=== PATIENT | female | born 1975 | race Caucasian/White ===

== ENCOUNTER 2019-03-25 22:00 | Observation (INO) ==
[2019-03-25 22:21] LABS: Bilirubin,Urine Negative (Negative); Blood,Urine Negative (Negative); Clarity,Urine Clear (Clear); Color,Urine Yellow (Yellow); Glucose,Urine (UA) Normal (Normal); Ketones,Urine Negative (Negative); Leukocyte Esterase,Urine Moderate (Negative); Nitrite,Urine Negative (Negative); Protein,Urine Negative (Neg-Trace); Specific Gravity,Urine 1.022 (1.010-1.025); Urobilinogen,Urine Normal (Normal)
[2019-03-25 22:24] LABS: Bacteria,Urine Few per hpf (None-Few); Hyaline Casts,Urine None Seen per lpf (None-Few); Squamous Epithelial Cell,Urine Many per lpf (None-Few)
[2019-03-25] MEDS ORDERED: Ondansetron 4 MG/2 ML VIAL IVP ONE (22:44)
[2019-03-25] MEDS ORDERED: Hyoscyamine SL 0.125 MG TAB.SUBL SL STA (22:44)
[2019-03-25] MEDS ORDERED: *HR* FentaNYL (PF) 100 MCG/2 ML VIAL IVP ONE (22:44)
[2019-03-25] MEDS ORDERED: 0.9 % Sodium Chloride 1,000 ML IVC ONE (22:47)
--- NOTE | 2019-03-25 22:56 | Emergency Department Note ---
Disposition Clinical Impression: Biliary colic, Mediastinal mass Disposition: Admitted As Inpatient Condition: Undetermined Referrals: NONE,PCP [Non-Partnered Physician] - Forms: ED Satisfaction Letter, Work/School Release Time of Disposition: 02:20 Abdominal Pain HPI - General Chief Complaint: ED Abdominal Pain Stated Complaint: poss gallbladder/vomiting Time Seen by Provider: 03/25/19 22:35 Source: patient Mode of arrival: ambulatory Limitations: no limitations Nursing Notes Reviewed: Yes Vital Signs Reviewed: Yes - History of Present Illness HPI Narrative: 44-year-old female with history of GERD arrives to the emergency department complaining of right upper quadrant left-sided chest, left shoulder, states this started earlier today. She has associated nausea. The patient states this is pretty similar to previous which she describes gallbladder tach as. The patient states that she has had episodes of this after eating a banana peppers and states that she thought was her gallbladder. She states she would take some simethicone it would go away. Patient states that she ate some [place] food and she thinks this is etiology. It started this morning after eating last night and for lunch today. The patient states that this is pretty similar to previous episodes in the past. She states that she had a episode where she thought it was her gallbladder. She states however this is a little more intense. Never been diagnosed with any issues of the gallbladder in the past. Patient also states that the pain radiates from her right upper quadrant into the left side of her chest and epigastrium and into the left shoulder. No associated shortness of breath, she does have associated nausea and one episode of vo miting. Pain Scale: 8 - Related Data Previous Rx's Medication Instructions Recorded Cephalexin [Keflex] 500 mg PO TID #30 capsule 06/20/17 Fluconazole [Diflucan] 150 mg PO DAILY #2 tab 06/20/17 Magic Mouthwash [Magic Mouthwash 10 ml PO QID #240 ml 06/20/17 BLM] Allergies Allergy/AdvReac Type Severity Reaction Status Date / Time Penicillins [PCN] Allergy Rash Verified 03/25/19 22:05 All systems ED: reviewed and negative except as stated. Constitutional: Denies: fever, chills, weakness ENT ED: Denies: dysphagia Cardiovascular: Reports: chest pain. Denies: dyspnea on exertion Respiratory: Denies: dyspnea Gastrointestinal: Reports: abdominal pain, nausea. Denies: vomiting, diarrhea, constipation Genitourinary: Denies: urgency, dysuria Musculoskeletal: Denies: back pain Integumentary: Denies: rash Neurological: Denies: headache Abdominal Pain PMH - Past Medical History Medical history: Reports: no medical history Female Surgical History: Reports: no surgical history - Social History Smoking status: Never smoker Alcohol use: Reports: occasionally Drug use: Reports: none Physical Exam - General Limitations: no limitations General appearance: alert, in no apparent distress - Head Head exam: atraumatic, normocephalic, normal inspection - Eye Eye exam: Present: normal appearance, PERRL, EOMI - ENT ENT exam: normal exam, normal oropharynx, mucous membranes moist - Neck Neck exam: Present: normal inspection, full ROM, trachea midline - Chest Chest inspection: Present: normal inspection, symmetric chest wall rise - Respiratory Respiratory exam: Present: normal lung sounds bilaterally - Cardiovascular Cardiovascular exam: Present: regular rate, normal rhythm, normal heart sounds - Abdominal Exam Abdominal exam: Present: soft, tenderness (RUQ). Absent: distention, guarding, rebound, Hughes's sign, Rovsing's sign, tenderness at McBurney's Point, hernia - Extremities Exam Extremities exam: Present: normal inspection, full ROM, normal capillary refill. Absent: tenderness, pedal edema - Neurological Exam Neurological exam: Present: alert, oriented X3 - Skin Skin exam: Present: warm, dry, intact, normal color Course Vital Signs Temperature 98.1 F 03/25/19 22:03 Pulse Rate 63 03/25/19 22:03 Respiratory Rate 20 03/25/19 22:03 Blood Pressure 139/90 03/25/19 22:03 O2 Sat by Pulse Oximetry 99 03/25/19 22:03 Temperature 98.1 F 03/25/19 22:03 Pulse Rate 58 03/26/19 02:12 Respiratory Rate 16 03/26/19 02:12 Blood Pressure 136/80 03/26/19 02:12 O2 Sat by Pulse Oximetry 100 03/26/19 02:12 Oxygen Delivery Oxygen Delivery Room Air Procedures - Ultrasound-Other Narrative: [id number] bedside ultrasound of the right upper quadrant revealed a g allbladder with noted gallstones within a period gallbladder wall noted to be 0.26 cm. No pericholecystic fluid noted. Common bile duct noted to be 0.21 cm in width. No sonographic Hughes sign noted. Abdominal Pain - MDM Narrative Medical decision making narrative: Patient's workup in the emergency department demonstrates cholelithiasis without or cholecystic fluid, no gallbladder wall thickening or dilation of common bile duct. Hepatic function within normal limits. No bilirubin elevation noted. Patient is still having some nausea and vomiting and I am concerned about the intractable nature of this and we will admit the patient to the hospital for intractable nausea and vomiting. I spoke with Dr. Mejía in general surgery who agreed that we can trending the patient's hepatic function to determine if the patient has any obstructive nature on this. Patient was given Zofran and Phenergan here in the emergency department. In addition the patient was found to have a large right upper lobe mass on x-ray so CT scan with IV contrast was performed. This demonstrated what appeared to be concern for malignancy and th yroid of origin. I spoke with on-call hospitalist who will accept the patient to the hospital. I feel as though I do not comfortable sending the patient home given the patient's intractable nausea and vomiting combined with her continued abdominal discomfort with cholelithiasis combined with this new right upper lobe mass noted. Patient agrees to plan of care. No further questions or concerns noted. - Lab Data Lab results reviewed: Yes I reviewed the patient's lab results. Result diagrams: 03/25/19 22:46 03/25/19 22:46 Lab Results 03/25/19 03/25/19 03/25/19 Range/Units 22:12 22:12 22:46 WBC 13.4 H (4.3-11.1) K/mcL RBC 4.27 (3.82-4.97) M/mcL Hgb 11.9 (11.5-15.4) g/dL Hct 36.7 (35.3-44.9) % MCV 85.9 (83.0-100.0) fL MCH 27.9 L (28.0-33.3) pg MCHC 32.4 (31.6-35.5) g/dL RDW 12.9 (11.5-14.5) % Plt Count 284 (140-400) K/mcL MPV 10.3 (9.4-12.4) fL Immature Gran % 0.3 (0-4) % Seg Neutrophils % 86.2 % Lymphocytes % 9.0 % Monocytes % 4.0 % Eosinophils % 0.4 % Basophils % 0.1 % Neutrophils # 11.5 H (1.6-8.9) K/mcL Lymphocytes # 1.2 (0.6-4.6) K/mcL Monocytes # 0.5 (0.0-1.3) K/mcL Eosinophils # 0.1 (0.0-0.6) K/mcL Basophils # 0.0 (0.0-0.2) K/mcL Sodium (136-145) mEq/L Potassium (3.5-5.1) mEq/L Chloride (98-107) mEq/L Carbon Dioxide (23-29) mEq/L BUN (6-20) mg/dL Creatinine (0.60-1.20) mg/dL Est GFR ( Amer) (> 60) Est GFR (Non-Af Amer) (> 60) BUN/Creatinine Ratio (6-26) Glucose (70-105) mg/dL Calculated Osmolality (280-300) Calcium (8.6-10.3) mg/dL Total Bilirubin (0.3-1.0) mg/dL Direct Bilirubin (0.0-0.2) mg/dL Indirect Bilirubin (0.0-1.2) mg/dL AST (13-39) Units/L ALT (7-52) Units/L Alkaline Phosphatase (34-104) Units/L Troponin I (< 0.04) ng/mL Serum Total Protein (6.4-8.9) g/dL Albumin (3.5-5.7) g/dL Globulin (2.4-3.5) g/dL Albumin/Globulin Ratio (1.1-2.2) Amylase (29-103) Units/L Lipase (11-82) Units/L Urine Color Yellow (Yellow) Urine Clarity Clear (Clear) Urine pH 7.0 (5.0-8.0) pH Units Ur Specific [place] 1.022 (1.010-1.025) Urine Protein Negative (Neg-Trace) mg/dL Urine Glucose (UA) Normal (Normal) mg/dL Urine Ketones Negative (Negative) mg/dL Urine Blood Negative (Negative) Urine Nitrite Negative (Negative) Urine Bilirubin Negative (Negative) Urine Urobilinogen Normal (Normal) mg/dL Ur Leukocyte Esterase Moderate H (Negative) Urine Microscopic RBC 5-15 H (0-3) per hpf Urine Microscopic WBC 5-15 H (0-3) per hpf Ur Squamous Epith Cells Many H (None-Few) per lpf Urine Bacteria Few (None-Few) per hpf Hyaline Casts None Seen (None-Few) per lpf Ur Culture Indicated? YES A (NO) Urine Test Negative (Negative) 03/25/19 Range/Units 22:46 WBC (4.3-11.1) K/mcL RBC (3.82-4.97) M/mcL Hgb (11.5-15.4) g/dL Hct (35.3-44.9) % MCV (83.0-100.0) fL MCH (28.0-33.3) pg MCHC (31.6-35.5) g/dL RDW (11.5-14.5) % Plt Count (140-400) K/mcL MPV (9.4-12.4) fL Immature Gran % (0-4) % Seg Neutrophils % % Lymphocytes % % Monocytes % % Eosinophils % % Basophils % % Neutrophils # (1.6-8.9) K/mcL Lymphocytes # (0.6-4.6) K/mcL Monocytes # (0.0-1.3) K/mcL Eosinophils # (0.0-0.6) K/mcL Basophils # (0.0-0.2) K/mcL Sodium 136 (136-145) mEq/L Potassium 3.6 (3.5-5.1) mEq/L Chloride 103 (98-107) mEq/L Carbon Dioxide 21 L (23-29) mEq/L BUN 11 (6-20) mg/dL Creatinine 0.64 (0.60-1.20) mg/dL Est GFR ( Amer) > 60 (> 60) Est GFR (Non-Af Amer) > 60 (> 60) BUN/Creatinine Ratio 17 (6-26) Glucose 147 H (70-105) mg/dL Calculated Osmolality 284 (280-300) Calcium 8.8 (8.6-10.3) mg/dL Total Bilirubin 0.4 (0.3-1.0) mg/dL Direct Bilirubin 0.1 (0.0-0.2) mg/dL Indirect Bilirubin 0.3 (0.0-1.2) mg/dL AST 13 (13-39) Units/L ALT 11 (7-52) Units/L Alkaline Phosphatase 91 (34-104) Units/L Troponin I < 0.03 (< 0.04) ng/mL Serum Total Protein 7.3 (6.4-8.9) g/dL Albumin 4.2 (3.5-5.7) g/dL Globulin 3.1 (2.4-3.5) g/dL Albumin/Globulin Ratio 1.4 (1.1-2.2) Amylase 37 (29-103) Units/L Lipase 14 (11-82) Units/L Urine Color (Yellow) Urine Clarity (Clear) Urine pH (5.0-8.0) pH Units Ur Specific [place] (1.010-1.025) Urine Protein (Neg-Trace) mg/dL Urine Glucose (UA) (Normal) mg/dL Urine Ketones (Negative) mg/dL Urine Blood (Negative) Urine Nitrite (Negative) Urine Bilirubin (Negative) Urine Urobilinogen (Normal) mg/dL Ur Leukocyte Esterase (Negative) Urine Microscopic RBC (0-3) per hpf Urine Microscopic WBC (0-3) per hpf Ur Squamous Epith Cells (None-Few) per lpf Urine Bacteria (None-Few) per hpf Hyaline Casts (None-Few) per lpf Ur Culture Indicated? (NO) Urine Test (Negative) - Radiology Data Radiology results reviewed: Yes I reviewed the patient's radiology results. Chest X-Ray 03/25/19 22:44 IMPRESSION: Large abnormal right convex opacity of the superior right mediastinum worrisome for mass or adenopathy. Dedicated CT of the chest with contrast is recommended. 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 Potentially malignancy of thyroid origin, other etiologies such as thymic origin not excluded. Mass may potentially be accessible via ultrasound-guided FNA. Indeterminate lung nodules as detailed. Depending on results of biopsy, however obtained, PET-CT may be indicated. Multiple gallstones within a distended gallbladder. 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 Potentially malignancy of thyroid origin, other etiologies such as thymic origin not excluded. Mass may potentially be accessible via ultrasound-guided FNA. Indeterminate lung nodules as detailed. Depending on results of biopsy, however obtained, PET-CT may be indicated. Multiple gallstones within a distended gallbladder. D/ / Remy Sterling MD / Remy Sterling MD Interpreting Provider: Remy Sterling MD - EKG Data EKG attestation: Yes I reviewed and interpreted this EKG. EKG results narrative: Heart rate 60 beats for minute. Normal sinus rhythm. No ST or ST depression noted. No acute changes noted
[2019-03-25 23:10] LABS: Basophils % 0.1 %; Eosinophils # 0.1 K/mcL (0.0-0.6); Eosinophils % 0.4 %; Hematocrit 36.7 % (35.3-44.9); Hemoglobin 11.9 g/dL (11.5-15.4); Immature Granulocytes % 0.3 % (0-4); Lymphocytes # 1.2 K/mcL (0.6-4.6); Mean Corpuscular HGB Conc 32.4 g/dL (31.6-35.5); Mean Corpuscular Hemoglobin 27.9 pg (28.0-33.3); Mean Corpuscular Volume 85.9 fL (83.0-100.0); Mean Platelet Volume 10.3 fL (9.4-12.4); Monocytes # 0.5 K/mcL (0.0-1.3); Neutrophils # 11.5 K/mcL (1.6-8.9); Platelet Count 284 K/mcL (140-400); Red Blood Count 4.27 M/mcL (3.82-4.97); Red Cell Distribution Width 12.9 % (11.5-14.5); Segmented Neutrophils % 86.2 %
[2019-03-25] MEDS ORDERED: Isovue-370 500 ML BOTTLE IVP ONE (23:27)
[2019-03-25 23:31] LABS: Alanine Aminotransferase 11 Units/L (7-52); Albumin 4.2 g/dL (3.5-5.7); Albumin/Globulin Ratio 1.4 (1.1-2.2); Alkaline Phosphatase 91 Units/L (34-104); Amylase 37 Units/L (29-103); Aspartate Amino Transferase 13 Units/L (13-39); BUN/Creatinine Ratio 17 (6-26); Bilirubin,Direct 0.1 mg/dL (0.0-0.2); Bilirubin,Indirect 0.3 mg/dL (0.0-1.2); Bilirubin,Total 0.4 mg/dL (0.3-1.0); Blood Urea Nitrogen 11 mg/dL (6-20); Calcium 8.8 mg/dL (8.6-10.3); Carbon Dioxide 21 mEq/L (23-29); Chloride 103 mEq/L (98-107); Globulin 3.1 g/dL (2.4-3.5); Glucose 147 mg/dL (70-105); Lipase 14 Units/L (11-82); Osmolality,Calculated 284 (280-300); Potassium 3.6 mEq/L (3.5-5.1); Sodium 136 mEq/L (136-145); Total Protein 7.3 g/dL (6.4-8.9); Troponin I < 0.03 ng/mL (< 0.04); eGFR For Non-African Americans > 60 (> 60)
--- NOTE | 2019-03-25 23:42 | Emergency Department Note ---
Disposition Clinical Impression: Biliary colic Disposition: Still a Patient Condition: Good Referrals: NONE,PCP [Primary Care Provider] - Forms: ED Satisfaction Letter, Work/School Release Time of Disposition: 23:42 General Adult HPI - General Chief complaint: ED Abdominal Pain Stated complaint: poss gallbladder/vomiting Time Seen by Provider: 03/25/19 22:35 Source: patient Mode of arrival: ambulatory Limitations: no limitations - History of Present Illness Pain Scale: 8 - Related Data Previous Rx's Medication Instructions Recorded Cephalexin [Keflex] 500 mg PO TID #30 capsule 06/20/17 Fluconazole [Diflucan] 150 mg PO DAILY #2 tab 06/20/17 Magic Mouthwash [Magic Mouthwash 10 ml PO QID #240 ml 06/20/17 BLM] Allergies Allergy/AdvReac Type Severity Reaction Status Date / Time Penicillins [PCN] Allergy Rash Verified 03/25/19 22:05 Constitutional: Denies: fever, chills, weakness ENT ED: Denies: dysphagia Cardiovascular: Reports: chest pain. Denies: dyspnea on exertion Respiratory: Denies: dyspnea Gastrointestinal: Reports: abdominal pain, nausea. Denies: vomiting, diarrhea, constipation Genitourinary: Denies: urgency, dysuria Musculoskeletal: Denies: back pain Integumentary: Denies: rash Neurological: Denies: headache Past Medical History - Past Medical History Medical history: Reports: no medical history - Social History Smoking Status: Never smoker Smokeless Tobacco Status: No Alcohol use: Reports: occasionally Drug use: Reports: none Physical Exam - General Limitations: no limitations General appearance: alert, in no apparent distress Course Vital Signs Temperature 98.1 F 03/25/19 22:03 Pulse Rate 63 03/25/19 22:03 Respiratory Rate 20 03/25/19 22:03 Blood Pressure 139/90 03/25/19 22:03 O2 Sat by Pulse Oximetry 99 03/25/19 22:03 Temperature 98.1 F 03/25/19 22:03 Pulse Rate 63 03/25/19 22:03 Respiratory Rate 20 03/25/19 22:03 Blood Pressure 139/90 03/25/19 22:03 O2 Sat by Pulse Oximetry 99 03/25/19 22:03 Oxygen Delivery Oxygen Delivery Room Air Medical Decision Making - Lab Data Result diagrams: 03/25/19 22:46 03/25/19 22:46 Lab Results 03/25/19 03/25/19 03/25/19 Range/Units 22:12 22:12 22:46 WBC 13.4 H (4.3-11.1) K/mcL RBC 4.27 (3.82-4.97) M/mcL Hgb 11.9 (11.5-15.4) g/dL Hct 36.7 (35.3-44.9) % MCV 85.9 (83.0-100.0) fL MCH 27.9 L (28.0-33.3) pg MCHC 32.4 (31.6-35.5) g/dL RDW 12.9 (11.5-14.5) % Plt Count 284 (140-400) K/mcL MPV 10.3 (9.4-12.4) fL Immature Gran % 0.3 (0-4) % Seg Neutrophils % 86.2 % Lymphocytes % 9.0 % Monocytes % 4.0 % Eosinophils % 0.4 % Basophils % 0.1 % Neutrophils # 11.5 H (1.6-8.9) K/mcL Lymphocytes # 1.2 (0.6-4.6) K/mcL Monocytes # 0.5 (0.0-1.3) K/mcL Eosinophils # 0.1 (0.0-0.6) K/mcL Basophils # 0.0 (0.0-0.2) K/mcL Sodium (136-145) mEq/L Potassium (3.5-5.1) mEq/L Chloride (98-107) mEq/L Carbon Dioxide (23-29) mEq/L BUN (6-20) mg/dL Creatinine (0.60-1.20) mg/dL Est GFR ( Amer) (> 60) Est GFR (Non-Af Amer) (> 60) BUN/Creatinine Ratio (6-26) Glucose (70-105) mg/dL Calculated Osmolality (280-300) Calcium (8.6-10.3) mg/dL Total Bilirubin (0.3-1.0) mg/dL Direct Bilirubin (0.0-0.2) mg/dL Indirect Bilirubin (0.0-1.2) mg/dL AST (13-39) Units/L ALT (7-52) Units/L Alkaline Phosphatase (34-104) Units/L Troponin I (< 0.04) ng/mL Serum Total Protein (6.4-8.9) g/dL Albumin (3.5-5.7) g/dL Globulin (2.4-3.5) g/dL Albumin/Globulin Ratio (1.1-2.2) Amylase (29-103) Units/L Lipase (11-82) Units/L Urine Color Yellow (Yellow) Urine Clarity Clear (Clear) Urine pH 7.0 (5.0-8.0) pH Units Ur Specific [place] 1.022 (1.010-1.025) Urine Protein Negative (Neg-Trace) mg/dL Urine Glucose (UA) Normal (Normal) mg/dL Urine Ketones Negative (Negative) mg/dL Urine Blood Negative (Negative) Urine Nitrite Negative (Negative) Urine Bilirubin Negative (Negative) Urine Urobilinogen Normal (Normal) mg/dL Ur Leukocyte Esterase Moderate H (Negative) Urine Microscopic RBC 5-15 H (0-3) per hpf Urine Microscopic WBC 5-15 H (0-3) per hpf Ur Squamous Epith Cells Many H (None-Few) per lpf Urine Bacteria Few (None-Few) per hpf Hyaline Casts None Seen (None-Few) per lpf Ur Culture Indicated? YES A (NO) Urine Test Negative (Negative) 03/25/19 Range/Units 22:46 WBC (4.3-11.1) K/mcL RBC (3.82-4.97) M/mcL Hgb (11.5-15.4) g/dL Hct (35.3-44.9) % MCV (83.0-100.0) fL MCH (28.0-33.3) pg MCHC (31.6-35.5) g/dL RDW (11.5-14.5) % Plt Count (140-400) K/mcL MPV (9.4-12.4) fL Immature Gran % (0-4) % Seg Neutrophils % % Lymphocytes % % Monocytes % % Eosinophils % % Basophils % % Neutrophils # (1.6-8.9) K/mcL Lymphocytes # (0.6-4.6) K/mcL Monocytes # (0.0-1.3) K/mcL Eosinophils # (0.0-0.6) K/mcL Basophils # (0.0-0.2) K/mcL Sodium 136 (136-145) mEq/L Potassium 3.6 (3.5-5.1) mEq/L Chloride 103 (98-107) mEq/L Carbon Dioxide 21 L (23-29) mEq/L BUN 11 (6-20) mg/dL Creatinine 0.64 (0.60-1.20) mg/dL Est GFR ( Amer) > 60 (> 60) Est GFR (Non-Af Amer) > 60 (> 60) BUN/Creatinine Ratio 17 (6-26) Glucose 147 H (70-105) mg/dL Calculated Osmolality 284 (280-300) Calcium 8.8 (8.6-10.3) mg/dL Total Bilirubin 0.4 (0.3-1.0) mg/dL Direct Bilirubin 0.1 (0.0-0.2) mg/dL Indirect Bilirubin 0.3 (0.0-1.2) mg/dL AST 13 (13-39) Units/L ALT 11 (7-52) Units/L Alkaline Phosphatase 91 (34-104) Units/L Troponin I < 0.03 (< 0.04) ng/mL Serum Total Protein 7.3 (6.4-8.9) g/dL Albumin 4.2 (3.5-5.7) g/dL Globulin 3.1 (2.4-3.5) g/dL Albumin/Globulin Ratio 1.4 (1.1-2.2) Amylase 37 (29-103) Units/L Lipase 14 (11-82) Units/L Urine Color (Yellow) Urine Clarity (Clear) Urine pH (5.0-8.0) pH Units Ur Specific [place] (1.010-1.025) Urine Protein (Neg-Trace) mg/dL Urine Glucose (UA) (Normal) mg/dL Urine Ketones (Negative) mg/dL Urine Blood (Negative) Urine Nitrite (Negative) Urine Bilirubin (Negative) Urine Urobilinogen (Normal) mg/dL Ur Leukocyte Esterase (Negative) Urine Microscopic RBC (0-3) per hpf Urine Microscopic WBC (0-3) per hpf Ur Squamous Epith Cells (None-Few) per lpf Urine Bacteria (None-Few) per hpf Hyaline Casts (None-Few) per lpf Ur Culture Indicated? (NO) Urine Test (Negative) Attestation Statement - Attestation Attestation: I examined this patient and my medical decision-making was reviewed with the Resident Physician. I agree with the documented findings, disposition and treatment plan as described except to the extent set forth below. 44 year old female presents to the ED with complaints of RUQ pain and is likley experiencing biliary colic and states that she has foudn that certain foods make it wores and she ate veggie lo mein last night and tonight and it apears that it has exceratbed her pain. BEdside US does not shows acute divina but it does show gallstones and she would like benefit from a HIDA Scan. Although on CXR it did show a right medistainal hilar mass that they are otherwise requiring a CT chest with IV contrast for evaluation. Flaco states the medication have helped with her pain. Labs are otherwise unremarkable
[2019-03-26] MEDS ORDERED: Isovue-370 500 ML BOTTLE IVP ONE (00:13)
[2019-03-26] MEDS ORDERED: *HR* FentaNYL (PF) 100 MCG/2 ML VIAL IVP ONE (00:14)
[2019-03-26] MEDS ORDERED: Ondansetron 4 MG/2 ML VIAL IVP ONE (00:16)
[2019-03-26] MEDS ORDERED: *HR* Promethazine 25 MG/ML VIAL IVP ONE (01:58)
[2019-03-26] MEDS ORDERED: *HR* HYDROmorphone (PF) 1 MG/ML SYRINGE IVP ONE (01:58)
[2019-03-26 02:49] LABS: Thyroid Stimulating Hormone 0.355 mcIU/mL (0.340-5.600)
[2019-03-26] MEDS ORDERED: Naloxone 0.4 MG/ML INJ IVP PRN (06:23)
[2019-03-26] MEDS ORDERED: Ondansetron 4 MG/2 ML VIAL IVP PRN (06:23)
[2019-03-26] MEDS ORDERED: OXYCODONE Oral CONC 10 MG/0.5 ML ORAL.SYG SL PRN (06:28)
[2019-03-26] MEDS ORDERED: 0.9 % Sodium Chloride 1,000 ML IVC SCH (06:30)
--- NOTE | 2019-03-26 06:43 | Internal Med History&Physical ---
Date of Encounter: 03/26/19 Time of Encounter: 05:30 Internal Medicine - H&P: HPI Chief complaint: Abdominal Pain Admitted From: Home Plans for Post Hospital Care: Home History of present illness: Ms. Kam is a 44 year old female with past medical history significant for GERD who presents for complaints of RUQ abdominal pain starting yesterday radiating across her chest into her shoulders and back associated with nausea and vomiting. Pain is described as aching and waxes and wanes in intensity and rated at 10/10 when at its worst. Pain improved and nearly resolved after receiving pain and nausea medications in ER. Currently rates her pain at 1/10. Currently denies any headache, chest pain, shortness of breath, nausea, chills, bowel or bladder changes. ER reported EKG as sinus rhythm with no acute changes noted. ER obtained chest xray which showed large abnormal right convex opacity of the superior right mediastinum worrisome for mass or adenopathy with dedicated CT of the chest recommended. ER then obtained chest CT which showed mediastinal mass contiguous with lower right pole right lobe thyroid extending into right paratracheal region, potentially malignancy of thyroid origin and other etiologies such as thymic origin not excluded with indeterminate lung nodules. ER also performed a CT of the abdomen and pelvis which showed multiple gallstones within a distended gallbladder. ER also performed a bedside ultrasound of the right upper quadrant of abdomen which showed a gallbladder with noted gallstones. Patient reports having similar flare ups in the past with certain foods that she suspected was secondary to her gallbladder though she never pursued an actual work up. Reports this episode seemed more intense and is the first time she has also experienced nausea and vomiting with the pain. ER called loom control chain builder surgery Dr Mejía who advised to continue trending lab work and will be happy to see in consult if needed. Also reports recently following with PCP over past couple months for abnormal thyroid labs but is unsure what they were. Past Med Surg Social Fam HX - Past Medical History Medical history: GERD Psychiatric history: anxiety, depression - Past Surgical History Surgical History: no surgical history - Social History Smoking Status: Never smoker Smokeless Tobacco Status: No Alcohol use: occasionally Drug use: none Internal Medicine - H&P: Meds Allergy/AdvReac Type Severity Reaction Status Date / Time Penicillins [PCN] Allergy Rash Verified 03/25/19 22:05 All Systems PM: A 10-system review of systems was performed and is negative for pertinent findings except as documented above in the HPI. - Constitutional Vitals: Temp Pulse Resp BP Pulse Ox 98.5 F 76 14 116/72 99 03/26/19 04:13 03/26/19 04:13 03/26/19 04:13 03/26/19 04:13 03/26/19 04:13 Exam: General: Alert and oriented. Skin:Normal color, no rash, no lesions. HEENT:Pupils equal, round and reactive. Cardiovascular:Normal S1 & S2, no rubs, murmurs or gallops. No JVD. Pulse regular. Lungs:Normal breath sounds, no wheezes or crackles. Abdomen:Soft, no rigidity. Tenderness on palpation to RUQ. Normoactive bowel sounds. No rebound tenderness or murphys sign. Extremities:No deformity, no edema or tenderness, no joint swelling or clubbing. Neurological:Normal cognition and motor skills. Pulses:Carotid and radial pulses normal +2. Rest of the physical exam is non contributory. Internal Med - H&P Results - Labs CBC & Chem 7: 03/25/19 22:46 03/25/19 22:46 Labs: Short CBC 03/25/19 Range/Units 22:46 WBC 13.4 H (4.3-11.1) K/mcL Hgb 11.9 (11.5-15.4) g/dL Hct 36.7 (35.3-44.9) % Plt Count 284 (140-400) K/mcL Neutrophils # 11.5 H (1.6-8.9) K/mcL BMP 03/25/19 22:46 Sodium 136 Potassium 3.6 Chloride 103 Carbon Dioxide 21 L BUN 11 Creatinine 0.64 Glucose 147 H Calcium 8.8 Cardiac Enzymes 03/25/19 Range/Units 22:46 Troponin I < 0.03 (< 0.04) ng/mL Liver Function 03/25/19 Range/Units 22:46 Total Bilirubin 0.4 (0.3-1.0) mg/dL Direct Bilirubin 0.1 (0.0-0.2) mg/dL AST 13 (13-39) Units/L ALT 11 (7-52) Units/L Alkaline Phosphatase 91 (34-104) Units/L Albumin 4.2 (3.5-5.7) g/dL Urine 03/25/19 Range/Units 22:12 Urine Color Yellow (Yellow) Urine Clarity Clear (Clear) Urine pH 7.0 (5.0-8.0) pH Units Ur Specific [place] 1.022 (1.010-1.025) Urine Protein Negative (Neg-Trace) mg/dL Urine Glucose (UA) Normal (Normal) mg/dL - Impressions ITS Impressions Chest X-Ray 03/25/19 22:44 IMPRESSION: Large abnormal right convex opacity of the superior right mediastinum worrisome for mass or adenopathy. Dedicated CT of the chest with contrast is recommended. 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 Potentially malignancy of thyroid origin, other etiologies such as thymic origin not excluded. Mass may potentially be accessible via ultrasound-guided FNA. Indeterminate lung nodules as detailed. Depending on results of biopsy, however obtained, PET-CT may be indicated. Multiple gallstones within a distended gallbladder. 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 Potentially malignancy of thyroid origin, other etiologies such as thymic origin not excluded. Mass may potentially be accessible via ultrasound-guided FNA. Indeterminate lung nodules as detailed. Depending on results of biopsy, however obtained, PET-CT may be indicated. Multiple gallstones within a distended gallbladder. D/ / Remy Sterling MD / Remy Sterling MD Interpreting Provider: Remy Sterling MD - Assessment and Plan (1) Gallstones Current Visit: Yes Status: Acute Assessment and plan: CT of abdomen pelvis shows multiple gallstones within a distended gallbladder. ER point of care ultrasound of right upper quadrant of abdomen shows gallbladder with noted gallstones. Continue trending labs. call center recruiter surgery Dr Mejía called by ER, recommends continuing to trend labs and will see in consult if needed. Repeat labs ordered. MIVF ordered. NPO. Pain control with PRN pain medications. (2) Abdominal pain Current Visit: Yes Status: Acute Assessment and plan: Likely secondary to gallstones. Plan as state above. Qualifiers: Abdominal location: right upper quadrant Qualified Code(s): R10.11 - Right upper quadrant pain (3) Nausea and vomiting Current Visit: Yes Status: Acute Assessment and plan: Currently resolved following nausea medications in ER. Likely secondary to gallstones. Nausea control with PRN nausea medications. Qualifiers: Vomiting type: unspecified Vomiting Intractability: unspecified Qualified Code(s): R11.2 - Nausea with vomiting, unspecified (4) Mediastinal mass Current Visit: Yes Status: Acute Assessment and plan: Chest CT shows mediastinal mass contiguous with lower right pole right lobe thyroid extending into right paratracheal region, potentially malignancy of thyroid origin and other etiologies such as thymic origin not excluded. Reports recent abnormal thyroid studies with PCP over last couple months. Oncology consult ordered, will need called in a.m. (5) Lung nodules Current Visit: Yes Status: Acute Assessment and plan: Chest CT shows indeterminate lung nodules that may warrant further evaluation. Oncology consult ordered, will need called in a.m. (6) Elevated white blood cell count Current Visit: Yes Status: Acute Assessment and plan: Slightly elevated at 13.4 Repeat labs ordered. Qualifiers: Leukocytosis type: unspecified Qualified Code(s): D72.829 - Elevated white blood cell count, unspecified (7) Abnormal urinalysis Current Visit: Yes Status: Acute Assessment and plan: UA shows moderate leukocyte esterase but possibly contaminated specimen. Denies any urinary symptoms. Urine culture pending. - Time Spent With Patient Total time spent is greater than 50% in coordination of care (as documented) at patient's floor/unit and/or counseling patient:
[2019-03-26 09:05] LABS: Basophils % 0.1 %; Eosinophils % 0.3 %; Hematocrit 36.4 % (35.3-44.9); Hemoglobin 11.4 g/dL (11.5-15.4); Immature Granulocytes % 0.3 % (0-4); Lymphocytes # 1.7 K/mcL (0.6-4.6); Lymphocytes % 12.4 %; Mean Corpuscular HGB Conc 31.3 g/dL (31.6-35.5); Mean Corpuscular Hemoglobin 27.2 pg (28.0-33.3); Mean Corpuscular Volume 86.9 fL (83.0-100.0); Mean Platelet Volume 10.1 fL (9.4-12.4); Monocytes # 0.8 K/mcL (0.0-1.3); Monocytes % 5.8 %; Neutrophils # 10.8 K/mcL (1.6-8.9); Platelet Count 273 K/mcL (140-400); Red Blood Count 4.19 M/mcL (3.82-4.97); Segmented Neutrophils % 81.1 %
[2019-03-26 09:24] LABS: Alanine Aminotransferase 11 Units/L (7-52); Albumin 4.1 g/dL (3.5-5.7); Albumin/Globulin Ratio 1.4 (1.1-2.2); Alkaline Phosphatase 92 Units/L (34-104); Aspartate Amino Transferase 13 Units/L (13-39); BUN/Creatinine Ratio 14 (6-26); Bilirubin,Total 0.5 mg/dL (0.3-1.0); Blood Urea Nitrogen 8 mg/dL (6-20); Calcium 8.8 mg/dL (8.6-10.3); Carbon Dioxide 26 mEq/L (23-29); Chloride 105 mEq/L (98-107); Glucose 112 mg/dL (70-105); Osmolality,Calculated 283 (280-300); Potassium 3.9 mEq/L (3.5-5.1); Sodium 137 mEq/L (136-145); Total Protein 7.1 g/dL (6.4-8.9); eGFR For Non-African Americans > 60 (> 60)
--- NOTE | 2019-03-26 09:29 | Oncology Inp Consult Note ---
Date of Encounter: 03/26/19 Time of Encounter: 09:00 Assessment and Plan (1) Mediastinal mass Status: Acute Assessment and plan: Anterior mediastinal mass, with cystic/necrotic appearance with calcifications, patient asymptomatic possible differential reviewed including cystic thymus lesions, malignancy, lymphoma benign/malignant thyroid conditions. TSH was low which has normalized. Since she is asymptomatic completely additional workup can be pursued as an outpatient including PET imaging, biopsy/thoracic surgery referral. Leukocytosis neutrophilic with prior normal blood counts likely related to her GI symptoms which has resolved. She is however on antiemetics as needed. Gallstones, surgery has been consulted and she is not acutely symptomatic currently. Labs being followed. Plan of care as above discussed with patient risk benefits of biopsy procedure reviewed with her. - Data of Consult Requesting Physician: Mino Knight MD Primary Care Provider: Sophia Estes CNP - Consult Narrative Reason for consult: mediastinal mass History of present illness: 44-year-old of female with no significant past medical history, nonsmoker, with abdominal pain, right upper quadrant for one day duration, nauseated feeling, presented to the ER. She relates her symptoms to the food she consumed, it resulted in gaseous feeling subsequently pain in the right upper quadrant. A CT scan of the chest abdomen and pelvis with IV contrast was performed which showed multiple gallstones in the distended gallbladder. Indeterminate lung nodules, liver cyst. A mediastinal mass contiguous with the lower pole of right thyroid lobe extending into the right paratracheal region was noted and oncology consulted for the same. This morning her abdominal pain has resolved, nausea is under control with antiemetics. She denies diarrhea. She denies any dysphagia or dyspnea she has some fatigue for the last year or so, she denies any worsening muscle weakness towards the evenings, no change in voice denies wt loss Past Med Surg Social Fam HX - Past Medical History Medical history: GERD Psychiatric history: anxiety, depression - Past Surgical History Surgical History: no surgical history - Social History Smoking Status: Never smoker Smokeless Tobacco Status: No Alcohol use: occasionally Drug use: none Medications and Allergies Allergy/AdvReac Type Severity Reaction Status Date / Time Penicillins [PCN] Allergy Rash Verified 03/25/19 22:05 Constitutional: Present: fatigue Additional comments: n wt loss, no fever Additional comments: no cp Additional comments: denies SOB/cough Additional comments: denies dysphagia Additional comments: denies jt aches Additional comments: gen wkness Oncology - Exam - Constitutional General appearance: no acute distress - Head Head exam: Present: atraumatic, normal inspection - Eye Eye exam: Present: EOMI, sclera anicteric - ENT ENT exam: Present: mucous membranes moist - Neck Additional comments: no palpable findings - Respiratory Respiratory exam: Present: CTAB - Cardiovascular Cardiovascular exam: Present: +S1, +S2 - GI/Abdominal GI/Abdominal exam: Present: normal bowel sounds, soft - Extremities Exam Extremities exam: Present: normal inspection - Neurological Exam Neurological exam: Present: alert, CN II-XII intact, oriented X3, no focal deficits - Psychiatric Psychiatric exam: Present: normal affect Consult Discharge Plan - Plan Referrals: Sophia Estes, PROMOTIONS DIRECTOR [Primary Care Provider] - Inpatient Charges Provider: Dr. Jonah Sandoval Consult - Inpatient: [id number]
--- NOTE | 2019-03-26 10:45 | Event Note ---
Date of Encounter: 03/26/19 Time of Encounter: 10:44 Surgery was approached by attending hospitalist (Dr. Knight) states patient is feeling better than when she came in. There is no evidence for acute cholecystitis. His plan is to trial her on a diet and if she is tolerable discharged to home with a follow-up in the office with general surgery to discuss cholelithiasis. Primary team will notify surgery if a consult visit is necessary.
[2019-03-26 11:32] VITALS: BP 136/88
--- NOTE | 2019-03-26 12:57 | Discharge Summary ---
- NOTES TO OUTPATIENT PROVIDER Notes to Outpatient Provider: Patient needs but CT scan per oncology. We will arrange for outpatient follow-up. She also needs follow up with surgery for her cholelithiasis. Orders not resulted at time of discharge: Pending orders 03/25/19 22:12 Culture,Urine [RM] Stat Date of Encounter: 03/26/19 Time of Encounter: 12:52 - Discharge Diagnosis (1) Abdominal pain Priority: Primary Status: Acute Qualifiers: Abdominal location: right upper quadrant Qualified Code(s): R10.11 - Right upper quadrant pain (2) Gallstones Priority: Secondary Status: Acute (3) Lung nodules Priority: Secondary Status: Acute (4) Mediastinal mass Priority: Secondary Status: Acute (5) Abnormal urinalysis Priority: Secondary Status: Acute (6) Elevated white blood cell count Priority: Secondary Status: Acute Qualifiers: Leukocytosis type: unspecified Qualified Code(s): D72.829 - Elevated white blood cell count, unspecified (7) Nausea and vomiting Priority: Secondary Status: Resolved Qualifiers: Vomiting type: unspecified Vomiting Intractability: unspecified Qualified Code(s): R11.2 - Nausea with vomiting, unspecified Hospital course: Ms. Kam is a 44 year old female patient with a history of gastroesophageal reflux disease who was hospitalized with acute right upper quadrant abdominal pain along with nausea and vomiting. CT scan done in the year of her abdomen and pelvis showed multiple gallstones within a distended gallbladder. Patient did not have any lab findings suggestive of cholecystitis. Surgery was consulted in the ER but they do not recommend any surgical intervention at this time. Patient's symptoms have now significantly improved. She is tolerating oral diet. She skin is stable for discharge and will follow up with surgery for further management as outpatient as she does need elective cholecystectomy. Patient was also found to have a mediastinal mass originating from the thyroid along with some lung nodules. This will need further workup and patient was evaluated by oncology who recommended outpatient PET/CT. We will make arrangements for outpatient follow up with oncology for this. Discharge discussed with: patient - Time Spent with Patient Total time spent providing and/or coordinating discharge services: Time spent: Less than 30 minutes (25 min) - Discharge Medications Prescriptions: New Ondansetron HCl [Zofran] 4 mg PO Q8HR PRN #14 tab PRN Reason: Nausea Home Medications: Ondansetron HCl [Zofran] 4 mg PO Q8HR PRN #14 tab 03/26/19 [Rx] Allergies/Adverse Reactions: Allergy/AdvReac Type Severity Reaction Status Date / Time Penicillins [PCN] Allergy Rash Verified 03/25/19 22:05 Date of admission: 03/26/19 02:37 Primary care physician: Sophia Estes CNP Consults: 03/26/19 06:26 Consult to Oncology [CONS] Routine Consulting Provider: On[facility] Reason for Consult: Incidental findings of mediastinal mass contiguous with lower pole right lobe thyroid extending into right paratracheal region and inderterminate lung nodules found on CT of chest. Call Completed: No Discharging clinician: Mino Knight Anticipated date of discharge: 03/26/19 - Constitutional Vitals: Temp Pulse Resp BP Pulse Ox 98.7 F 59 16 136/88 99 03/26/19 11:27 03/26/19 11:27 03/26/19 11:27 03/26/19 11:27 03/26/19 11:27 General appearance: Present: cooperative, morbidly obese, pleasant, no acute distress Exam: General: Patient is alert, no acute distress, oriented x 3 Respiratory: Good respiratory effort. Normal breath sounds. No wheezing or crackles. Cardiovascular: Regular rate and rhythm. s1 and s2 normal No clicks, rubs, gallops, or murmurs. No pedal edema Abdomen: Abdomen is soft, right upper quadrant tenderness. Bowel sounds are present Musculoskeletal: Spontaneously moving all extremities Skin: warm, dry, intact. Neuro: Alert oriented x 3 normal cranial nerves, no focal deficits - Patient Status Disposition: Home, Self-Care Condition: Good Functional capacity at discharge: independent ambulation Overall status at discharge: patient is progressing back to baseline - Discharge Instructions Follow Up With: Sophia Estes CNP [Primary Care Provider] - (In 1 week) Howie Antonio DO [Partnered Physician] - (In 1 week for follow-up on cholelithiasis) Therese Sandoval MD [Partnered Physician] - (Within 1 week for follow-up regarding mediastinal mass requiring PET/CT) - Diet and Activity Activity: increase activity as tolerated Diet: low fat, low cholesterol, low salt diet
--- NOTE | 2019-03-28 08:43 | Electrocardiograph Report ---
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
== END 2019-03-26 14:33 | disposition home or self-care (01) ==
LOC: EMEROOARM 22:00 → 3ANU 22:00 → SUATTDRO 03-26 02:37 → 3ANU 03-26 03:38
PROVIDERS: ADMIT Family Medicine; ATTEND Internal Medicine

== ENCOUNTER 2019-06-02 07:18 | Inpatient (IN) ==
[2019-06-02] MEDS ORDERED: Acetaminophen IV 1,000 MG/100 ML INFUS..BTL IVPB ONE (08:11)
[2019-06-02] MEDS ORDERED: Famotidine 20 MG/2 ML VIAL IVP ONE (08:11)
[2019-06-02] MEDS ORDERED: CeFAZolin Syr 2,000MG/20 ML 2,000 MG/20 ML SYRINGE IVPB ONE (08:11)
[2019-06-02] MEDS ORDERED: Gabapentin 300 MG CAPSULE PO ONE (08:12)
[2019-06-02] MEDS ORDERED: Ringers Solution, Lactated 1,000 ML IVC SCH ×2 (08:15)
--- NOTE | 2019-06-02 08:17 | History & Physical Report ---
Date of Encounter: 06/02/19 Time of Encounter: 08:16 24 Hour HP Update - Instructions Instructions: If the History and Physical is less than 30 days old and was completed prior to A.M. admission and or procedure and has NOT been updated on calendar day of procedure please complete this update prior to performing procedure. - Update Patient reports changes in Medical Condition: Yes Changes in examination, assessment, or condition: Yes Changes in Medication: No Preop tests/diagnostics Reviewed: Yes Pre-Op MRSA Screen: Negative Surgery Remains Indicated: Yes Consent for Planned Operative Procedure(s) Verified: Yes Additions to current History and Physical: patient stung by a wasp 2nd digit left hand - Pre-Operative Checklist Preoperative Checklist Indicated: Yes Prophylactic Antibiotic Ordered: Yes Home Medications Include Beta Dev: No Beta Dev Taken Today (Day of Surgery): No Beta Dev Taken Yesterday (Day Prior to Surgery): No Is VTE Prophylaxis Indicated?: Yes
[2019-06-02] MEDS ORDERED: Dexamethasone 4 MG/ML VIAL ONE (08:20)
[2019-06-02] MEDS ORDERED: *HR* FentaNYL (PF) 100 MCG/2 ML VIAL ONE ×4 (08:20→11:25)
[2019-06-02] MEDS ORDERED: Ondansetron 4 MG/2 ML VIAL ONE (08:20)
[2019-06-02] MEDS ORDERED: *HR* Succinylcholine 200 MG/10 ML VIAL IVP ONE (08:20)
[2019-06-02] MEDS ORDERED: *HR* Rocuronium Bromide 50 MG/5 ML VIAL ONE (08:20)
[2019-06-02] MEDS ORDERED: Lidocaine -MPF 2% 2 ML VIAL ONE (08:20)
[2019-06-02] MEDS ORDERED: Lidocaine -MPF 4% 5 ML AMPUL ONE (08:20)
[2019-06-02] MEDS ORDERED: Lidocaine HCL 4 ML Topical Solution (Laryng-O-Jet Kit Sterile Pak) TP ONE ×2 (08:21→08:29)
[2019-06-02] MEDS ORDERED: *HR* Propofol 200 MG/20 ML VIAL IVP ONE ×2 (08:21→11:41)
[2019-06-02] MEDS ORDERED: *HR* Midazolam HCl 2 MG/2 ML VIAL ONE (08:21)
[2019-06-02] MEDS ORDERED: *HR* PHENYLEPHRINE 1,000 MCG/10 ML SYRINGE IVP ONE (08:27)
--- NOTE | 2019-06-02 08:32 | Anesthesia Evaluation PreOp ---
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 History: Denies Any Significant HX Other Medical History: GERD, Other (Obese) Anesthesia History: No Prior Anesthetic Complications : No Test: Negative Alcohol Use: occasionally Drug use: none Medications and Allergies Omeprazole [PriLOSEC] 20 mg PO DAILY #30 cap 03/26/19 [Rx] Ondansetron HCl [Zofran] 4 mg PO Q8HR PRN #14 tab 03/26/19 [Rx] Cetirizine HCl [Zyrtec] 10 mg PO DAILY 04/05/19 [History] Cyanocobalamin (Vitamin B-12) [Vitamin B12] 500 mcg PO DAILY 04/05/19 [History] Multivit-Min/Iron/Vitamin K [Adult Multivitamin-Iron Tablet] 1 each PO DAILY 04/05/19 [History] Sertraline [Zoloft] 100 mg PO DAILY 04/05/19 [History] Allergy/AdvReac Type Severity Reaction Status Date / Time Penicillins [PCN] Allergy Rash Verified 04/05/19 11:08 - Meds/Allergy Pre-op Review Medications Reviewed: Yes Allergies Reviewed: Yes Beta Blockers on Current Med List: No Anesthesia Results - Labs Laboratory Tests 05/25/19 05/25/19 05/25/19 10:47 10:47 10:47 Hgb 11.5 Hct 36.4 Plt Count 292 Sodium 137 Potassium 4.3 BUN 10 Creatinine 0.64 Serum , Qual Negative Anesthesia Exam O2 Sat Height 1.7 m Height 1.7 m Weight 116.12 kg Weight 116.12 kg O2 Sat by Pulse Oximetry 98 O2 Sat by Pulse Oximetry 98 Vital Signs Temp Pulse Resp BP Pulse Ox 98.2 F 78 18 140/84 98 06/02/19 08:07 06/02/19 08:07 06/02/19 08:07 06/02/19 08:07 06/02/19 08:07 Height: 5'7 Weight: 256 lbs NPO (# of Hours): MN Pain Scale: 0 - HEENT Pupil (Motor): Pupils equal, EOMI Mallampati: II Teeth: Normal Oral Opening: Greater than 3 - MAKE UP OPERATOR HELPER LOC: Oriented MAKE UP OPERATOR HELPER Motor: Normal RUE, Normal LUE, Normal RLE, Normal LLE, Normal Face MAKE UP OPERATOR HELPER Sensory: Normal: RUE, LUE, RLE, LLE, Face - Cardiac Rhythm: Regular Murmur: None JVD: No Carotid Bruit: No - Pulmonary Breath Sounds: bilateral Clear Respiratory Effort: Symmetrical Anesthesia Assess/Plan ASA Score: 2 Level of consciousness: Cooperative, Oriented Anesthetic Plan: General Autologous Blood: No Monitoring Plan: Standard Monitors Recovery Plan: PACU (Discussed GA, agrees to proceed)
[2019-06-02] MEDS ORDERED: Ondansetron 4 MG/2 ML VIAL IVP ONE (08:34)
[2019-06-02] MEDS ORDERED: Ketorolac 30 MG/ML VIAL ONE (08:34)
[2019-06-02] MEDS ORDERED: *HR* Promethazine 25 MG/ML VIAL IVP PRN (08:34)
[2019-06-02] MEDS ORDERED: Dexamethasone 4 MG/ML VIAL IVP ONE (08:34)
[2019-06-02] MEDS ORDERED: Lidocaine Jelly 6ml 1 APPL/6 ML JEL.PF.APP ONE (09:14)
[2019-06-02] MEDS ORDERED: Clindamycin 900 MG/50 ML 900 MG/50 ML IV.SOLN IVPB ONE ×2 (09:37→10:11)
[2019-06-02] MEDS ORDERED: Calcium Gluconate 1,000 MG/10 ML VIAL ONE (09:59)
--- NOTE | 2019-06-02 11:54 | Operative Note ---
Date of procedure: 06/02/19 Pre-op diagnosis: substernal goiter Post-op diagnosis: same Procedure: bronchoscopy transternal thyroidectomy partial thymectomy Anesthesia: GETA Surgeon: Velasquez Solares Was there an entry level administrative assistant present: No Estimated blood loss (cc): 250 Specimen: thymus, goiter Condition: stable Disposition: PACU Procedure in Detail: Patient was brought to the operating room and placed on the operating table in the supine position. After undergoing general anesthesia with sequential compressive devices on bilateral lower extremities operative antibiotics bronchoscopy was used to help place the double-lumen endotracheal tube in its correct anatomic position for single lung ventilation patient was prepped and draped in the usual sterile fashion incision made in the suprasternal notch to the xiphoid process with a #10 scalpel laid skin down of the subcutaneous tissue with the Bovie used to control hemostasis and to continue the dissection down to the sternum is divided longitudinally using the sternal saw and periosteal bleeding controlled with the Bovie cautery portion of the thymus gland was resected versus small injury to the left brachiocephalic vein which was controlled with a 4-0 Prolene suture. Vessel loops were placed around the left brachiocephalic vein as well as the innominate artery. With single lung ventilation we could appreciate the mass extending laterally down the right mediastinum into the azygos vein. With further dissection and gentle pressure the substernal goiter was brought up out of the chest above the innominate artery. The phrenic nerve was identified the entire time care taken to preserve its course. Once the mass was out of the mediastinum and into the neck 3 were able to identify the right recurrent laryngeal nerve which had been severely displaced given the size and chronicity of the substernal goiter. We were able to trace it in the chest up to the thyroid cartilage and preserve its course. Because the mass/goiter all involved the lower pole of the right thyroid we did not pursue any left thyroidectomy but only removal of the right. Hemostasis was excellent there were some gentle oozing near the trachea and this was controlled with fibrillar. 24 Caio drains were placed into the right and left pleural spaces. Sternal wires were placed. The bed of the sternal wires did not demonstrate any bleeding. The sternal wires were tightened and then the skin was closed in layers of #1 Vicryl, 0 Vicryl, and 4-0 Monocryl subcuticular stitch with dressings consisting of Steri-Strips and gauze area patient was extubated in the operating room taken to the recovery room breathing spontaneously hemodynamically stable.
[2019-06-02] MEDS: *HR* HYDROmorphone (PF) 1 MG/ML SYRINGE IVP PRN ×2 (12:11→12:16)
[2019-06-02] MEDS ORDERED: *HR* HYDROcodone/Acet 5/325 mg TABLET PO PRN (12:48)
[2019-06-02] MEDS ORDERED: Ondansetron 4 MG/2 ML VIAL IVP PRN (12:48)
[2019-06-02] MEDS ORDERED: Loratadine 10 MG TABLET PO PRN (12:48)
[2019-06-02] MEDS ORDERED: Naloxone 0.4 MG/ML INJ IVP PRN (12:48)
[2019-06-02] MEDS: *HR* Heparin 5,000 UNIT/ML VIAL SQ SCH ×2 (13:08→22:00)
[2019-06-02] MEDS: Ketorolac 15 MG/ML VIAL IVP SCH ×2 (13:11→19:00)
[2019-06-02] MEDS: Gabapentin 300 MG CAPSULE PO SCH ×2 (13:11→21:16)
[2019-06-02] MEDS: 0.9 % Sodium Chloride 1,000 ML IVC SCH (13:12)
[2019-06-02] MEDS: Ipratropium/Albuterol Neb 3 ML IH SCH ×4 (14:56→23:15)
[2019-06-02] MEDS: Morphine Sulfate 2 MG/ML SYRINGE IVP PRN ×2 (16:12→21:29)
[2019-06-02] MEDS: *HR* HYDROcodone/Acet 5/325 mg TABLET PO PRN (19:34)
[2019-06-02] MEDS: Sennosides/Docusate Sodium TABLET PO SCH (21:16)
[2019-06-02] MEDS: Famotidine 20 MG TABLET PO SCH (21:16)
[2019-06-03 02:23] LABS: Hematocrit 32.9 % (35.3-44.9); Hemoglobin 10.1 g/dL (11.5-15.4); Mean Corpuscular HGB Conc 30.7 g/dL (31.6-35.5); Mean Corpuscular Volume 91.1 fL (83.0-100.0); Mean Platelet Volume 10.5 fL (9.4-12.4); Platelet Count 243 K/mcL (140-400); Red Blood Count 3.61 M/mcL (3.82-4.97); Red Cell Distribution Width 14.6 % (11.5-14.5); White Blood Count 20.2 K/mcL (4.3-11.1)
[2019-06-03] MEDS: Ketorolac 15 MG/ML VIAL IVP SCH ×5 (02:31→23:36)
[2019-06-03] MEDS: *HR* HYDROcodone/Acet 5/325 mg TABLET PO PRN ×4 (02:32→20:39)
[2019-06-03] MEDS: 0.9 % Sodium Chloride 1,000 ML IVC SCH (02:33)
[2019-06-03 02:36] LABS: BUN/Creatinine Ratio 21 (6-26); Blood Urea Nitrogen 15 mg/dL (6-20); Calcium 7.7 mg/dL (8.6-10.3); Carbon Dioxide 23 mEq/L (23-29); Chloride 104 mEq/L (98-107); Glucose 176 mg/dL (70-105); Magnesium 1.8 mg/dL (1.6-2.6); Osmolality,Calculated 283 (280-300); Sodium 134 mEq/L (136-145); eGFR For African Americans > 60 (> 60); eGFR For Non-African Americans > 60 (> 60)
[2019-06-03] MEDS: Ipratropium/Albuterol Neb 3 ML IH SCH ×6 (03:55→23:55)
[2019-06-03] MEDS: Sennosides/Docusate Sodium TABLET PO SCH ×2 (07:43→20:39)
[2019-06-03] MEDS: Gabapentin 300 MG CAPSULE PO SCH ×3 (07:43→20:39)
[2019-06-03] MEDS: Famotidine 20 MG TABLET PO SCH ×2 (07:43→20:39)
[2019-06-03] MEDS: *HR* Heparin 5,000 UNIT/ML VIAL SQ SCH ×3 (07:45→20:39)
--- NOTE | 2019-06-03 08:17 | Cardiothoracic Progress Note ---
Date of Encounter: 06/03/19 Time of Encounter: 08:14 - Assessment and plan (1) Substernal thyroid goiter Current Visit: Yes Status: Acute The assessment and plan as outlined above was discussed with the patient and/or family members who expressed understanding and agreement. All questions were answered. stop ivf. replace mg. plan to remove drains tomorrow. Vital Signs, Last 4 Hours Temp Pulse Resp BP Pulse Ox 06/03/19 07:06 98.4 F 86 18 105/74 97 Oxgyen Flow Rate Oxygen Flow Rate (LPM) 2 Weight 06/01/19 06/02/19 06/03/19 23:59 23:59 23:59 Weight 116.12 kg 124 kg - Physical Examination General: Conversant, No Apparent Distress, Well developed, Well nourished HEENT: Atraumatic, Normocephaly Cardiac: Reg Rate and Rhythm Incision: No signs of infection, Dry/intact dressing Chest tubes: Minimal drainage Lungs: Normal Breath Sounds Neuro: Alert and responsive, No focal deficits noted, Other (litte raspy voice. no dysphagia ) Abdomen: Soft, Non-tender, Other (bs present ) - Labs 06/03/19 01:35 06/03/19 01:35 Lab Results, Last 24 hours 06/03/19 06/03/19 01:35 01:35 WBC 20.2 H Hgb 10.1 L Hct 32.9 L Plt Count 243 Sodium 134 L Potassium 4.0 Chloride 104 Carbon Dioxide 23 BUN 15 Creatinine 0.70 Glucose 176 H Calcium 7.7 L Magnesium 1.8 - Imaging Chest Xray: image reviewed Consult Discharge Plan - Plan Referrals: Sophia Estes, CONSTRUCTION COST ESTIMATOR [Primary Care Provider] -
[2019-06-03] MEDS: Morphine Sulfate 2 MG/ML SYRINGE IVP PRN ×3 (10:39→23:36)
[2019-06-04] MEDS: Ipratropium/Albuterol Neb 3 ML IH SCH ×7 (03:41→23:42)
[2019-06-04] MEDS: *HR* HYDROcodone/Acet 5/325 mg TABLET PO PRN ×3 (04:00→19:32)
[2019-06-04] MEDS: Ketorolac 15 MG/ML VIAL IVP SCH ×4 (06:24→23:02)
[2019-06-04] MEDS: *HR* Heparin 5,000 UNIT/ML VIAL SQ SCH ×3 (06:24→19:32)
[2019-06-04] MEDS: Gabapentin 300 MG CAPSULE PO SCH ×3 (07:45→19:32)
[2019-06-04] MEDS: Famotidine 20 MG TABLET PO SCH ×2 (07:45→19:32)
[2019-06-04] MEDS: Sennosides/Docusate Sodium TABLET PO SCH ×2 (07:46→19:32)
[2019-06-04] MEDS: Morphine Sulfate 2 MG/ML SYRINGE IVP PRN (09:02)
--- NOTE | 2019-06-04 09:17 | Cardiothoracic Progress Note ---
Date of Encounter: 06/04/19 Time of Encounter: 08:51 - Assessment and plan (1) Substernal thyroid goiter Current Visit: Yes Status: Acute The patient is recovering well from her median sternotomy with thyroidectomy and partial thymectomy. The chest tubes were removed. The patient will begin ambulating in the hallways today. The assessment and plan as outlined above was discussed with the patient and/or family members who expressed understanding and agreement. All questions were answered. - Subjective Procedure(s) Performed: POD #2 S/P Median sternotomy with thyroidectomy and partial thymectomy Interval history: The patient remained hemodynamically stable overnight. She is breathing comfortably. She has minimal complaints. Vital Signs, Last 4 Hours Temp Pulse Resp BP Pulse Ox 06/04/19 07:50 16 92 06/04/19 07:09 98.5 F 87 18 110/76 93 Oxgyen Flow Rate Oxygen Flow Rate (LPM) 0 Clinical Data, last 8 Hours Output, Chest Tube Drainage 30 Amount [Mediastinal #2] Output, Chest Tube Drainage 10 Amount [Mediastinal #1] Output, Urine Amount 400 Weight 06/02/19 06/03/19 06/04/19 23:59 23:59 23:59 Weight 116.12 kg 124 kg 123.9 kg - Physical Examination General: Conversant, No Apparent Distress Neck: No JVD, Normal carotid pulses Cardiac: Reg Rate and Rhythm, Normal S1 and S2, No Murmur Incision: No signs of infection Sternum: Stable Chest tubes: Minimal drainage, Other (No air leak) Lungs: Normal Breath Sounds, No Wheeze, Rales, Rhonchi Neuro: Alert and responsive, No focal deficits noted Vascular: Normal capillary refill Extremities: No Clubbing, No Cyanosis, No Edema, Normal Pulses - Labs 06/03/19 01:35 06/03/19 01:35 Consult Discharge Plan - Plan Additional Instructions: Please go to Out Patient testing on 2018 around 0810 AM to get an x-ray done before you go see Dr. Solares. The office is sending the order over to out patient testing at the [facility]. Referrals: Sophia Estes CNP [Primary Care Provider] - 06/10/19 11:00 am Velasquez Solares MD [Partnered Physician] - 06/27/19 9:10 am
[2019-06-04] MEDS ORDERED: Amiodarone Premix 150 MG/100 ML BAG IVPB ONE (22:22)
[2019-06-04] MEDS ORDERED: Amiodarone Premix 360 MG/200 ML BAG IVC ONE (23:00)
[2019-06-05] MEDS: Ipratropium/Albuterol Neb 3 ML IH SCH ×5 (04:06→19:50)
[2019-06-05] MEDS: Amiodarone Premix 360 MG/200 ML BAG IVC SCH ×2 (04:34→16:17)
[2019-06-05] MEDS: *HR* Heparin 5,000 UNIT/ML VIAL SQ SCH ×3 (05:52→20:55)
[2019-06-05] MEDS: Ketorolac 15 MG/ML VIAL IVP SCH ×4 (05:52→23:58)
[2019-06-05] MEDS: Famotidine 20 MG TABLET PO SCH ×2 (07:53→20:55)
[2019-06-05] MEDS: *HR* HYDROcodone/Acet 5/325 mg TABLET PO PRN ×3 (07:54→21:37)
[2019-06-05] MEDS: Gabapentin 300 MG CAPSULE PO SCH ×3 (07:54→20:55)
[2019-06-05] MEDS: Sennosides/Docusate Sodium TABLET PO SCH ×2 (07:54→20:54)
--- NOTE | 2019-06-05 08:57 | Cardiothoracic Progress Note ---
Date of Encounter: 06/05/19 Time of Encounter: 08:56 - Assessment and plan (1) Substernal thyroid goiter Current Visit: Yes Status: Acute The patient is recovering well from her median sternotomy with thyroidectomy and partial thymectomy. The patient developed atrial fibrillation with RVR last night and was started on an amiodarone drip. This morning she is in normal sinus rhythm. The patient will continue ambulating in the hallways today. The assessment and plan as outlined above was discussed with the patient and/or family members who expressed understanding and agreement. All questions were answered. - Subjective Procedure(s) Performed: POD #3 S/P Median sternotomy with thyroidectomy and partial thymectomy Interval history: The patient remained hemodynamically stable overnight. She is breathing comfortably. She has minimal complaints. Vital Signs, Last 4 Hours Temp Pulse Resp BP Pulse Ox 06/05/19 07:35 98.4 F 105 18 116/83 94 06/05/19 07:25 16 97 Oxgyen Flow Rate Oxygen Flow Rate (LPM) 0 Clinical Data, last 8 Hours Output, Urine Amount 150 Output, Urine Amount 600 Output, Urine Amount 200 Weight 06/03/19 06/04/19 06/05/19 23:59 23:59 23:59 Weight 124 kg 123.9 kg 125 kg - Physical Examination General: Conversant, No Apparent Distress Neck: No JVD, Normal carotid pulses Cardiac: Reg Rate and Rhythm, Normal S1 and S2, No Murmur Incision: No signs of infection, Dry/intact dressing Sternum: Stable Lungs: Normal Breath Sounds, No Wheeze, Rales, Rhonchi Neuro: Alert and responsive, No focal deficits noted Vascular: Normal capillary refill Skin: No rashes noted on visualized skin Extremities: No Clubbing, No Cyanosis, No Edema, Normal Pulses - Labs 06/03/19 01:35 06/03/19 01:35 Consult Discharge Plan - Plan Instructions: Sternal Precautions (GEN) Additional Instructions: Please go to Out Patient testing on 2018 around 0810 AM to get an x-ray done before you go see Dr. Solares. The office is sending the order over to out patient testing at the [facility]. Referrals: Sophia Estes CNP [Primary Care Provider] - 06/10/19 11:00 am Velasquez Solares MD [Partnered Physician] - 06/27/19 9:10 am
[2019-06-05 09:12] LABS: Basophils % 0.2 %; Eosinophils # 0.2 K/mcL (0.0-0.6); Eosinophils % 1.7 %; Hematocrit 25.6 % (35.3-44.9); Immature Granulocytes % 0.4 % (0-4); Lymphocytes # 1.9 K/mcL (0.6-4.6); Mean Corpuscular HGB Conc 30.9 g/dL (31.6-35.5); Mean Corpuscular Hemoglobin 27.2 pg (28.0-33.3); Mean Corpuscular Volume 88.3 fL (83.0-100.0); Mean Platelet Volume 10.5 fL (9.4-12.4); Monocytes # 0.5 K/mcL (0.0-1.3); Monocytes % 5.7 %; Neutrophils # 6.5 K/mcL (1.6-8.9); Platelet Count 250 K/mcL (140-400)
[2019-06-05 09:13] LABS: Hemoglobin 7.9 g/dL (11.5-15.4); White Blood Count 9.2 K/mcL (4.3-11.1)
[2019-06-05 10:40] LABS: BUN/Creatinine Ratio 17 (6-26); Blood Urea Nitrogen 10 mg/dL (6-20); Calcium 8.3 mg/dL (8.6-10.3); Carbon Dioxide 21 mEq/L (23-29); Chloride 105 mEq/L (98-107); Glucose 127 mg/dL (70-105); Osmolality,Calculated 283 (280-300); Potassium 3.7 mEq/L (3.5-5.1); Sodium 136 mEq/L (136-145); eGFR For African Americans > 60 (> 60); eGFR For Non-African Americans > 60 (> 60)
[2019-06-06] MEDS: Ipratropium/Albuterol Neb 3 ML IH SCH ×4 (00:06→10:45)
[2019-06-06] MEDS: Amiodarone Premix 360 MG/200 ML BAG IVC SCH (04:22)
[2019-06-06] MEDS: Ketorolac 15 MG/ML VIAL IVP SCH (05:24)
[2019-06-06] MEDS: *HR* Heparin 5,000 UNIT/ML VIAL SQ SCH ×2 (05:24→14:12)
[2019-06-06] MEDS: Famotidine 20 MG TABLET PO SCH (09:03)
[2019-06-06] MEDS: *HR* HYDROcodone/Acet 5/325 mg TABLET PO PRN ×2 (09:03→14:12)
[2019-06-06] MEDS: Gabapentin 300 MG CAPSULE PO SCH ×2 (09:03→14:12)
[2019-06-06] MEDS: Sennosides/Docusate Sodium TABLET PO SCH (09:05)
[2019-06-06 11:19] VITALS: BP 111/72
--- NOTE | 2019-06-06 12:46 | Discharge Summary ---
Date of Encounter: 06/06/19 Time of Encounter: 12:44 - Discharge Diagnosis (1) Substernal thyroid goiter Priority: Primary Status: Acute (2) Postoperative atrial fibrillation Priority: Secondary Status: Acute Comments: amiodarone for the next month - Hospital Course Hospital course: Ms. Kam is a 44 year old female - Time Spent with Patient Total time spent providing and/or coordinating discharge services: - Discharge Medications Prescriptions: No Action Omeprazole [PriLOSEC] 20 mg PO DAILY #30 cap Sertraline [Zoloft] 100 mg PO DAILY Cyanocobalamin (Vitamin B-12) [Vitamin B12] 500 mcg PO DAILY Cetirizine HCl [Zyrtec] 10 mg PO DAILY PRN PRN Reason: Allergy Symptoms Multivit-Min/Iron/Vitamin K [Adult Multivitamin-Iron Tablet] 1 each PO DAILY Home Medications: Omeprazole [PriLOSEC] 20 mg PO DAILY #30 cap 03/26/19 [Rx] Cetirizine HCl [Zyrtec] 10 mg PO DAILY PRN 04/05/19 [History] Cyanocobalamin (Vitamin B-12) [Vitamin B12] 500 mcg PO DAILY 04/05/19 [History] Multivit-Min/Iron/Vitamin K [Adult Multivitamin-Iron Tablet] 1 each PO DAILY 04/05/19 [History] Sertraline [Zoloft] 100 mg PO DAILY 04/05/19 [History] Allergies/Adverse Reactions: Allergy/AdvReac Type Severity Reaction Status Date / Time Penicillins [PCN] Allergy Rash Verified 04/05/19 11:08 Date of admission: 06/02/19 12:47 Primary care physician: Sophia Estes CNP Procedure(s) Performed: bronchoscopy, trans sternal thyroidectomy and thymectomy Discharging clinician: Velasquez Solares Anticipated date of discharge: 06/06/19 Physical Examination Vital Signs, Last 4 Hours Temp Pulse Resp BP Pulse Ox 06/06/19 11:14 98.4 F 98 16 111/72 94 06/06/19 10:46 16 95 General: Conversant, No Apparent Distress, Well developed, Well nourished HEENT: Atraumatic, Normocephaly Cardiac: Reg Rate and Rhythm, Normal S1 and S2 Lungs: Normal Breath Sounds Neuro: Alert and responsive, No focal deficits noted, Other (slight hoarseness) Skin: Other (incision clean ) - Patient Status Disposition: Home, Self-Care Condition: Good Functional capacity at discharge: independent ambulation Overall status at discharge: patient is progressing back to baseline - Discharge Instructions Instructions: Sternal Precautions (GEN) Follow Up With: Sophia Estes CNP [Primary Care Provider] - 06/10/19 11:00 am Velasquez Solares MD [Partnered Physician] - 06/27/19 9:10 am - Diet and Activity Activity: sternal precautions, no driving for four weeks, increase activity as tolerated Diet: advance to your usual diet
--- NOTE | 2019-06-06 16:47 | Electrocardiograph Report ---
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
== END 2019-06-06 14:29 | disposition home or self-care (01) | DRG 626 ==
LOC: SAMDAY 07:18 → 2NNU 12:47
PROVIDERS: ADMIT Thoracic Surgery (Cardiothoracic Vascular Surgery); ATTEND Thoracic Surgery (Cardiothoracic Vascular Surgery)